=== PATIENT | female | born 1970 | race Two or more races ===

== ENCOUNTER 2022-10-14 13:31 | Emergency (ER) | payer BC, OTHER ==
[~2022-10-14] VITALS: Ht 167.6 cm; Wt 72.7 kg
[~2022-10-14 13:31] MED LIST: METF-371 PO; OXY10CRT PO; PREG200C19 PO; SERT-160 PO
[2022-10-14] MEDS ORDERED: HYDROmorphone HCL 2 MG/ML VL/or syr IM ONE (14:30)
[2022-10-14] MEDS ORDERED: ONDANSETRON ODT 4 MG TAB PO ONE (14:30)
[2022-10-14] MEDS ORDERED: KETOROLAC TROMETH 60MG/2ML VIAL IM ONE (14:45)
[2022-10-14] MEDS ORDERED: SODIUM CHLORIDE 0.9% 1,000 ML IV ONE ×2 (14:45→18:45)
[2022-10-14 15:49] LABS: Basophils # (auto) 0.1 10 ^3/uL (0-0.2); Basophils % (auto) 0.5 % (0.0-2.0); Eosinophils # (auto) 0 10 ^3/uL (0-0.8); Hematocrit 29.5 % (36.0-46.0); Hemoglobin 9.7 g/dL (12.2-16.2); Lymphocytes # (auto) 2.2 10 ^3/uL (0.4-5.4); Lymphocytes % (auto) 20.4 % (10.0-50.0); Mean Corpuscular Hemoglobin 29.8 pg (28.0-32.0); Mean Corpuscular Hgb Conc. 32.9 g/dL (32.0-36.0); Mean Corpuscular Volume 90.5 fL (80.0-100.0); Monocytes # (auto) 0.6 10 ^3/uL (0-1.3); Monocytes % (auto) 5.4 % (0.0-12.0); Neutrophils # (auto) 8.1 10 ^3/uL (1.6-8.6); Neutrophils % (auto) 73.7 % (37.0-80.0); Red Blood Cells 3.26 10^6/uL (4.0-5.20); Red Cell Distribution Width 14.7 % (11.8-14.3)
[2022-10-14 16:05] LABS: INR 1.52 (0.9-1.15); Partial Thromboplastin Time 50.1 SEC (24.5-34.5)
[2022-10-14 16:57] LABS: Sodium 142 mmol/L (136-145)
[2022-10-14 16:58] LABS: Alanine Aminotransferase 27 U/L (13-56); Albumin 1.6 g/dL (3.4-5.0); Alkaline Phosphatase 156 U/L (45-117); Anion Gap 7 (5-15); Aspartate Aminotransferase 23 U/L (15-37); BUN/Creatinine Ratio 18.4 (10.0-20.0); Bilirubin, Total 0.7 mg/dL (0.2-1.0); Blood Urea Nitrogen 27 mg/dL (7-18); Calcium 7.3 mg/dL (8.5-10.1); Carbon Dioxide 22 mmol/L (21-32); Chloride 113 mmol/L (98-107); GFR African American 48 mL/min; GFR Non-African American 39 mL/min; Glucose 86 mg/dL (74-106); Magnesium 1.8 mg/dL (1.6-2.6); Potassium 4.1 mmol/L (3.5-5.1)
[2022-10-14] MEDS ORDERED: IOHEXOL 350 MG/ML 100ML IJ ONE (17:12)
[2022-10-14] MEDS ORDERED: CALCIUM GLUC 1,000mg/50ml-NS 50 ML IV ONE (20:45)
[2022-10-14] MEDS ORDERED: PIPERACILLIN-TAZOB 3.375GM 100 ML IV ONE (21:30)
[2022-10-14] MEDS ORDERED: HYDROmorphone HCL 2 MG/ML VL/or syr IV ONE (23:30)
[2022-10-14] MEDS ORDERED: ONDANSETRON HCL 4 MG/2 ML VIAL IV ONE (23:30)
[2022-10-15 01:39] VITALS: BP 116/72
== END 2022-10-15 01:51 | disposition short-term general hospital (02) ==
LOC: EDBD 13:31 → ER 13:31
DX: I95.9 Hypotension, unspecified (principal); D64.9 Anemia, unspecified; E11.22 Type 2 diabetes mellitus with diabetic chronic kidney disease; N18.9 Chronic kidney disease, unspecified; E83.51 Hypocalcemia; Z98.890 Other specified postprocedural states; Z79.899 Other long term (current) drug therapy; Z79.82 Long term (current) use of aspirin
CPT/HCPCS: 36415; 70450; 71260; 74177; 80053; 83735; 83880; 84484; 85025; 85610; 85730; 93005; 93970; 96365; 96366; 96367; 96372; 96375; 99285; J0610; J1170; J1885; J2405; J2543; J7030; Q0162; Q9967